=== PATIENT | male | born 1965 | race Caucasian/White ===

== ENCOUNTER 2017-06-15 11:21 | Emergency (ER) | payer OTHER ==
[~2017-06-15] VITALS: Ht 167.6 cm; Wt 72.6 kg
[~2017-06-15 11:21] MED LIST: Augmentin 875-1 EACH PO; Bactrim Ds Tab1 EACH PO; CEPH500 PO; Cleocin HCl300 MG PO; Colace100 MG PO; HYDHCL25 PO; MUPI1NAS; Naprosyn500 MG PO; Norco 10-325 T1 EACH PO; Norco 5-325 Ta1 EACH PO; Percocet 5-3251 EACH PO; Veetids 500500 MG PO
[2017-06-15] MEDS ORDERED: Norco 5-325 Ta1 EACH PO (12:20)
== END 2017-06-15 12:45 | disposition home or self-care (01) ==
LOC: ER 11:21
DX: S62.655A Nondisplaced fracture of middle phalanx of left ring finger, initial encounter for closed fracture (principal); F17.210 Nicotine dependence, cigarettes, uncomplicated; W23.0XXA Caught, crushed, jammed, or pinched between moving objects, initial encounter
CPT/HCPCS: 73140; 99283

== ENCOUNTER 2017-07-14 17:33 | Emergency (ER) | payer OTHER ==
[~2017-07-14] VITALS: Ht 167.6 cm; Wt 68.0 kg
[2017-07-14] MEDS ORDERED: Percocet 5-3251 EACH PO (22:23)
== END 2017-07-14 22:45 | disposition home or self-care (01) ==
LOC: ER 17:33
DX: S27.1XXA Traumatic hemothorax, initial encounter (principal); S22.41XA Multiple fractures of ribs, right side, initial encounter for closed fracture; J45.909 Unspecified asthma, uncomplicated; F17.210 Nicotine dependence, cigarettes, uncomplicated; W01.198A Fall on same level from slipping, tripping and stumbling with subsequent striking against other object, initial encounter
CPT/HCPCS: 71100; 74177; 96374; 99284; J1170; J7030; Q9967

== ENCOUNTER 2017-08-22 13:59 | Emergency (ER) | payer OTHER ==
[~2017-08-22] VITALS: Ht 165.1 cm; Wt 63.5 kg
[2017-08-22] MEDS ORDERED: ALBU90OI INH (14:37)
== END 2017-08-22 14:55 | disposition home or self-care (01) ==
LOC: ER 13:59
DX: J06.9 Acute upper respiratory infection, unspecified (principal); F17.210 Nicotine dependence, cigarettes, uncomplicated
CPT/HCPCS: 71046; 99283

== ENCOUNTER 2018-06-23 18:11 | Emergency (ER) | payer OTHER ==
[~2018-06-23] VITALS: Ht 165.1 cm; Wt 68.0 kg
[~2018-06-23 18:11] MED LIST changes: +ALBU90OI INH
== END 2018-06-23 19:52 | disposition home or self-care (01) ==
LOC: ER 18:11
DX: T69.9XXA Effect of reduced temperature, unspecified, initial encounter (principal); F17.210 Nicotine dependence, cigarettes, uncomplicated; Z59.0 Homelessness; X31.XXXA Exposure to excessive natural cold, initial encounter

== ENCOUNTER 2020-07-20 17:52 | Emergency (ER) | payer OTHER ==
[~2020-07-20] VITALS: Ht 167.6 cm; Wt 65.8 kg
[2020-07-20 19:30] LABS: BASOPHILS ABSOLUTE AUTO 0.06 K/mm3 (0.00-0.23); BASOPHILS PERCENT AUTO 1 % (0-2); EOSINOPHILS ABSOLUTE AUTO 0.36 K/mm3 (0.00-0.68); EOSINOPHILS PERCENT AUTO 5 % (0-6); Hematocrit 48.2 % (37.0-53.0); Hemoglobin 16.1 g/dL (13.5-17.5); IMMATURE GRAN ABSOLUTE AUTO 0.01 K/mm3 (0.00-0.10); IMMATURE GRAN PERCENT AUTO 0 % (0-1); LYMPHOCYTES PERCENT AUTO 24 % (21-46); MONOCYTES ABSOLUTE AUTO 0.58 K/mm3 (0.16-1.47); MONOCYTES PERCENT AUTO 9 % (4-13); Mean Corpuscular HGB 29.8 pg (26.0-34.0); Mean Corpuscular HGB Conc 33.4 g/dL (31.5-36.5); Mean Corpuscular Volume 89 fL (80-100); Mean Platelet Volume 9.3 fL (9.1-12.4); NEUTROPHILS ABSOLUTE AUTO 4.19 K/mm3 (1.96-9.15); NEUTROPHILS PERCENT AUTO 62 % (41-73); Platelet Count 307 K/mm3 (150-400); RDW Coefficient Variation 13.8 % (11.7-14.2); RDW Standard Deviation 45.1 fL (35.1-46.3); Red Blood Cell Count 5.41 M/mm3 (4.30-5.90)
[2020-07-20 19:54] LABS: Alanine Aminotransfer (ALT/SGP 34 U/L (12-78); Albumin, Blood 3.4 g/dL (3.4-5.0); Albumin/Globulin Ratio 0.8 (0.8-1.8); Alk Phos 94 U/L (50-136); Anion Gap 5 mmol/L (6-16); Aspartate Aminotrans (AST/SGOT 27 U/L (12-37); Bilirubin, Total 0.3 mg/dL (0.1-1.0); Blood Urea Nitrogen 12 mg/dL (8-24); Bun/Creatinine Ratio 17.8 (12.0-20.0); CO2, Blood 26 mmol/L (21-32); Calcium, Blood 9.1 mg/dL (8.5-10.1); Chloride, Blood 109 mmol/L (98-108); Creatinine, Blood 0.68 mg/dL (0.60-1.20); Globulin, Blood 4.3 g/dL (2.2-4.0); Glomerular Filtration Rate >60 (60-); Glucose, Blood 95 mg/dL (70-99); Potassium, Blood 4.1 mmol/L (3.5-5.5); Sodium, Blood 140 mmol/L (136-145); Total Protein, Blood 7.7 g/dL (6.4-8.2)
== END 2020-07-20 22:00 | disposition home or self-care (01) ==
LOC: ER 17:52
PROVIDERS: Physician Assistant
DX: R20.2 Paresthesia of skin (principal)
CPT/HCPCS: 36415; 80053; 85025; 99284

== ENCOUNTER 2023-11-26 20:37 | Emergency (ER) | payer OTHER ==
[~2023-11-26] VITALS: Ht 167.6 cm; Wt 68.0 kg
[2023-11-26 20:55] VITALS: BP 138/93
[2023-11-26] MEDS ORDERED: Ketorolac Tromethamine 10 MG Tab PO ONE (21:40)
[2023-11-26] MEDS ORDERED: Lidocaine 4% 1 Patch TOP ONE (21:40)
== END 2023-11-26 21:49 | disposition home or self-care (01) ==
LOC: ER 20:37
DX: G56.32 Lesion of radial nerve, left upper limb (principal); M54.2 Cervicalgia; M54.9 Dorsalgia, unspecified; F17.210 Nicotine dependence, cigarettes, uncomplicated
CPT/HCPCS: A9270

== ENCOUNTER 2024-12-23 12:56 | Emergency (ER) | payer OTHER ==
[~2024-12-23] VITALS: Ht 167.6 cm; Wt 77.1 kg
[2024-12-23] MEDS ORDERED: Morphine Sulfate 4 MG/1 ML Injection IV ONE (13:05)
[2024-12-23] MEDS ORDERED: Ondansetron HCl 2 MG / ML 2ML Vial IV ONE (13:05)
[2024-12-23 13:37] LABS: BASOPHILS ABSOLUTE AUTO 0.05 K/mm3 (0.00-0.23); BASOPHILS PERCENT AUTO 1 % (0-2); EOSINOPHILS ABSOLUTE AUTO 0.27 K/mm3 (0.00-0.68); EOSINOPHILS PERCENT AUTO 3 % (0-6); Hematocrit 45.5 % (37.0-53.0); Hemoglobin 15.3 g/dL (13.5-17.5); IMMATURE GRAN ABSOLUTE AUTO 0.02 K/mm3 (0.00-0.10); IMMATURE GRAN PERCENT AUTO 0 % (0-1); LYMPHOCYTES ABSOLUTE AUTO 1.26 K/mm3 (0.84-5.20); LYMPHOCYTES PERCENT AUTO 15 % (21-46); MONOCYTES ABSOLUTE AUTO 0.56 K/mm3 (0.16-1.47); MONOCYTES PERCENT AUTO 7 % (4-13); Mean Corpuscular HGB Conc 33.6 g/dL (31.5-36.5); Mean Corpuscular Volume 92 fL (80-100); NEUTROPHILS ABSOLUTE AUTO 6.00 K/mm3 (1.96-9.15); NEUTROPHILS PERCENT AUTO 74 % (41-73); NRBC ABSOLUTE 0.00 K/mm3 (0.00-0.02); NRBC Auto 0.0 /100 WBC (0.0-0.2); Platelet Count 286 K/mm3 (150-400); RDW Coefficient Variation 14.4 % (11.7-14.2); RDW Standard Deviation 48.9 fL (35.1-46.3)
[2024-12-23 13:57] LABS: Prothrombin Time Results 11.1 Sec (9.7-11.5)
[2024-12-23 14:07] LABS: Alanine Aminotransfer (ALT/SGP 30.0 U/L (12-78); Albumin, Blood 3.5 g/dL (3.4-5.0); Albumin/Globulin Ratio 0.9 (0.8-1.8); Anion Gap 7.0 mmol/L (3-11); Aspartate Aminotrans (AST/SGOT 68.0 U/L (12-37); Bilirubin, Total 0.7 mg/dL (0.1-1.0); Blood Urea Nitrogen 20.0 mg/dL (8-24); CO2, Blood 29.0 mmol/L (21-32); Calcium, Blood 9.0 mg/dL (8.5-10.1); Chloride, Blood 104.0 mmol/L (98-108); Creatinine, Blood 0.82 mg/dL (0.60-1.20); Globulin, Blood 4.1 g/dL (2.2-4.0); Glucose, Blood 134.0 mg/dL (70-99); Potassium, Blood 3.5 mmol/L (3.5-5.5); Sodium, Blood 136.0 mmol/L (136-145); Total Protein, Blood 7.6 g/dL (6.4-8.2)
[2024-12-23] MEDS ORDERED: Robaxin750 MG PO (14:59)
[2024-12-23 15:00] VITALS: BP 122/95
== END 2024-12-23 15:44 | disposition home or self-care (01) ==
LOC: ER 12:56
PROVIDERS: Student in an Organized Health Care Education/Training Program
DX: S80.212A Abrasion, left knee, initial encounter (principal); S60.512A Abrasion of left hand, initial encounter; S60.511A Abrasion of right hand, initial encounter; S60.312A Abrasion of left thumb, initial encounter; G89.11 Acute pain due to trauma; F17.210 Nicotine dependence, cigarettes, uncomplicated; V29.99XA Rider (driver) (passenger) of other motorcycle injured in unspecified traffic accident, initial encounter
CPT/HCPCS: 70450; 71260; 72125; 73130; 73562-LT; 74177; 80053; 85025; 85610; 85730; 86850; 86900; 86901; 90471; 90715; 93005; 93010; 96374-59; 96375; 99284-25; J2270; J2405; J7120; Q9967

== ENCOUNTER 2025-04-21 21:24 | Emergency (ER) | payer OTHER ==
[~2025-04-21] VITALS: Ht 167.6 cm; Wt 77.1 kg
[~2025-04-21 21:24] MED LIST changes: +Robaxin750 MG PO
[2025-04-21 21:35] VITALS: BP 136/92
[2025-04-21] MEDS ORDERED: Ketorolac Tromethamine 30mg Vial IM ONE (21:40)
[2025-04-22] MEDS ORDERED: RX Prepack 6 Tabs Oxycodone 5mg UD ONE (00:05)
[2025-04-22] MEDS ORDERED: RX Prepack 2 Tabs Ondansetron ODT 4MG UD ONE (00:05)
[2025-04-22] MEDS ORDERED: Morphine Sulfate 4 MG/1 ML Injection IM ONE (00:05)
[2025-04-22] MEDS ORDERED: Ondansetron 4 MG SoluTab BC ONE (00:05)
[2025-04-22] MEDS ORDERED: ONDA4ODT MM (00:33)
[2025-04-22] MEDS ORDERED: HYDACE10B PO (00:33)
== END 2025-04-22 00:49 | disposition home or self-care (01) ==
LOC: ER 21:24
DX: S52.602A Unspecified fracture of lower end of left ulna, initial encounter for closed fracture (principal); F17.200 Nicotine dependence, unspecified, uncomplicated; W18.30XA Fall on same level, unspecified, initial encounter
CPT/HCPCS: 29125; 73090; 73120; 73130; 96372; 99283-25; A9270; J2270